=== PATIENT | female | born 1990 | race Caucasian/White ===

== ENCOUNTER 2018-10-11 11:19 | Emergency (ER) | payer BC ==
[2018-10-11] MEDS ORDERED: Lidocaine 1% 20 ML MDV ONE (11:45)
[2018-10-11] MEDS ORDERED: Lidocaine 1% 20 ML MDV INJECT ONE (11:47)
[2018-10-11] MEDS ORDERED: Diphtheria,Pertussis(Acell),Tetanus Vaccine 0.5 ML SDV IM ONE (11:48)
--- NOTE | 2018-10-11 12:00 | EDM.PDOC ---
ED HPI GENERAL MEDICAL PROBLEM - General Chief Complaint: Laceration Stated Complaint: LACERATION LEFT RING FINGER Time Seen by Provider: 10/11/18 11:42 Source of Information: Reports: Patient History Limitations: Reports: No Limitations - History of Present Illness INITIAL COMMENTS - FREE TEXT/NARRATIVE: 28 YO WF presents to ER with laceration to tip of left ring finger. Pt reports she accidentally cut her finger with a knife while working in the kitchen. Pt denies any functional deficit. Pt denies any significant pain. Pt came to ER because she couldn't control the bleeding. Pt unsire of last tetanus. 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: - Infectious Disease History Infectious Disease History: Reports: Chicken Pox, Influenza - Past Surgical History Head Surgeries/Procedures: Reports: None HEENT Surgical History: Reports: None Female Surgical History: Reports: Section Social & Family History - Family History Family Medical History: Noncontributory ED ROS GENERAL - Review of Systems Review Of Systems: See Below Constitutional: Reports: No Symptoms HEENT: Reports: No Symptoms Respiratory: Reports: No Symptoms Cardiovascular: Reports: No Symptoms Endocrine: Reports: No Symptoms GI/Abdominal: Reports: No Symptoms : Reports: No Symptoms Musculoskeletal: Reports: No Symptoms Skin: Reports: Wound (2cm laceration to tip of left ring finger) Neurological: Reports: No Symptoms Psychiatric: Reports: No Symptoms Hematologic/Lymphatic: Reports: No Symptoms ED EXAM, SKIN/RASH Exam: See Below Exam Limited By: No Limitations General Appearance: Alert, WD/WN, No Apparent Distress Head: Atraumatic, Normocephalic Neck: Normal Inspection, Supple, Non-Tender, Full Range of Motion Respiratory/Chest: No Respiratory Distress, Lungs Clear, Normal Breath Sounds, No Accessory Muscle Use, Chest Non-Tender Cardiovascular: Normal Peripheral Pulses, Regular Rate, Rhythm, No Edema, No Gallop, No JVD, No Murmur, No Rub GI/Abdominal: Normal Bowel Sounds, Soft, Non-Tender, No Organomegaly, No Distention, No Abnormal Bruit, No Mass Back Exam: Normal Inspection, Full Range of Motion, NT Extremities: Normal Inspection, Normal Range of Motion, Non-Tender, No Pedal Edema, Normal Capillary Refill Neurological: Alert, Oriented, CN II-XII Intact, Normal Cognition, Normal Gait, Normal Reflexes, No Motor/Sensory Deficits Psychiatric: Normal Affect, Normal Mood Skin: Wound/Incision (2cm laceration to tip of left ring finger) ED SKIN PROCEDURES - Laceration/Wound Repair Left Distal Digit - 4th (Ring) Lac/Wound length In cm: 2 Appearance: Superficial Distal NVT: Neuro & Vascular Intact Anesthetic Type: Digital Local Anesthesia - Lidocaine (Xylocaine): 1% Plain Local Anesthetic Volume: Other (10) Skin Prep: Providone-Iodine (Betadine), Saline Exploration/Debridement/Repair: Wound Explored Closed with: Sutures Suture Size: other (5.0) # of Sutures: 3 Suture Type: Nylon Sterile Dressing Applied: Provider Tetanus Status Addressed: Yes Complications: No Course - Vital Signs Last Recorded V/S: Last Vital Signs Temp 36.6 C 10/11/18 11:25 Pulse 84 10/11/18 11:25 Resp 16 10/11/18 11:25 BP 128/65 10/11/18 11:25 Pulse Ox 98 10/11/18 11:25 Departure - Departure Time of Disposition: 12:03 Disposition: Home, Self-Care 01 Condition: Good Clinical Impression: Laceration of left ring finger Qualifiers: Encounter type: initial encounter Damage to nail status: without damage Foreign body presence: without foreign body Qualified Code(s): S61.215A - Laceration without foreign body of left ring finger without damage to nail, initial encounter - Discharge Information Instructions: Laceration Care, Adult, Stitches, Lucia, or Adhesive Wound Closure Referrals: Rachel Manley MD [Physician] - Additional Instructions: 1. discharge home 2. wound instructions given 3. follow up with PCP for further evaluation and treatment 4. suture removal 7-10 days 5. return to ER for worsening symptoms - Assessment/Plan Assessment:: 1. 2cm laceration to tip of left ring finger Plan: 1. discharge home 2. wound instructions given 3. follow up with PCP for further evaluation and treatment 4. suture removal 7-10 days 5. return to ER for worsening symptoms
== END 2018-10-11 12:05 | disposition home or self-care (01) ==
LOC: KA.ED 11:19
DX: S61.215A Laceration without foreign body of left ring finger without damage to nail, initial encounter (principal); Z23 Encounter for immunization; W26.0XXA Contact with knife, initial encounter
CPT/HCPCS: 12001; 90471; 90715; 96372; 99283; J2001